=== PATIENT | male | born 1960 | race African-American/Black ===

== ENCOUNTER 2017-01-19 18:56 | Inpatient (IN) | payer SELFPAY ==
[~2017-01-19] VITALS: Ht 175.3 cm; Wt 100.3 kg
--- OUTSIDE RECORDS SUMMARY | 2017-01-19 19:02 | XMS REPORT ---
Author Author Cheri Zimmerman Organization [employer] Address Unknown Phone Unavailable Care Team Providers Care Manager Knowledge Name Role Phone Cheri Zimmerman CP Unavailable Allergies No Known Allergies Problems Problem Type Condition ICD-9 Code Onset Dates Condition Status Problem Closed fracture of metacarpal bone(s), site unspecified 815.00 Active Medications Medication Code System Code Instructions Start Date End Date Status Dosage Naprosyn FORMER[facility] NAMED [facility] [address]-75 500 MG Orally every 12 hrs November 13, 2012 Active 1 tablet as needed Hydrocodone-Acetaminophen FORMERLY NAMED [facility] [address]-49 5-325 MG Orally every 6 hrs November 13, 2012 Active 1-2 tabs as needed for pain Results No Known Results Summary Purpose [employer] Submission
--- OUTSIDE RECORDS SUMMARY | 2017-01-19 19:02 | XMS REPORT ---
Author Author Lety Manzano Organization [employer] Address Unknown Phone Unavailable Care Team Providers Care Roving Winder Name Role Phone Lety Manzano CP Unavailable Allergies No Known Allergies Problems Problem Type Condition ICD-9 Code Onset Dates Condition Status Problem Closed fracture of metacarpal bone(s), site unspecified 815.00 Active Assessment Other unknown and unspecified cause of morbidity or mortality 799.9 Active Medications Medication Code System Code Instructions Start Date End Date Status Dosage Naprosyn [facility] [address]-32 500 MG Orally every 12 hrs November 13, 2012 Active 1 tablet as needed Hydrocodone-Acetaminophen [facility] [address]-88 5-325 MG Orally every 6 hrs November 13, 2012 Active 1-2 tabs as needed for pain Procedures Procedure Coding System Code Date CASE MGT- QMHP 15 MIN PHILLIP CPT-4 T1016 February 01, 2014 INITIAL REFERRAL-IND. CPT-4 T1023 February 01, 2014 Results No Known Results Summary Purpose [employer] Submission
[2017-01-19] MEDS ORDERED: NORMAL SALINE 1,000 ML IV ONE ×2 (19:24→20:45)
--- NOTE | 2017-01-19 19:28 | ERPDOC ---
Departure Disposition Decision Date: January 19, 2017 Disposition Decision Time: 22:00 Disposition: [address] [facility] Impression Impression Impression: Primary Impression: Intentional overdose of drug in tablet form Additional Impressions: Suicide attempt Depression Depression Type: major depressive disorder Major depression recurrence: recurrent Active/Remission status: currently active Major depression episode severity: severe Psychotic features: without psychotic features Qualified Codes: F33.2 - Major depressive disorder, recurrent severe without psychotic features Methamphetamine abuse Severity: Severe Condition: Improved Seen By: Physician only Problems/Meds/Labs Reviewed?: Yes Medications reviewed and manag: Yes Follow up care ordered?: Yes Mental Status: Alert, Oriented HPI - Psychosocial General Chief Complaint: Suicide Ideation/Attempt Stated Complaint: SUICIDAL THOUGHTS Time Seen by MD: 19:09 Source: patient Exam Limitations: no limitations HPI - Psychosocial Initial Comments 56yo man presents to the Allergies: Coded Allergies: NKDA (Verified Allergy, Unknown, 01/19/17) Physical Exam General Vitals and Pain First Documented Vital Signs Date Time Temp Pulse Resp B/P Pulse Ox O2 Delivery O2 Flow Rate FiO2 01/19/17 19:01 98.5 116 12 171/107 97 Room Air Weight: Kilograms: 98.400 Height (feet): 5 Height (inches): 9.00 Triage Pain Scale: Progress Results/Orders Orders Procedure Category Date Status Time Iv Lock (Ed Only) EDM 01/19/17 Transmitted 19:24 Nothing By Mouth (Ed EDM 01/19/17 Transmitted Only) 19:24 EKG EKG 01/19/17 Taken 19:24 Cbc W/Auto LAB 01/19/17 Complete Diff-Reflex Manual 19:24 Cmp - Comprehensive LAB 01/19/17 Complete Metabolic 19:24 Ethanol LAB 01/19/17 Complete 19:24 Drug Screen LAB 01/19/17 Complete Urine-Test At [facility] 19:24 Acetaminophen LAB 01/19/17 Complete 19:24 Salicylate LAB 01/19/17 Complete 19:24 Ua, Dip Wreflex LAB 01/19/17 Complete [employer] Third 19:24 Tsh - Thyroid Stim LAB 01/19/17 Complete Hormone 19:24 Chest 1 View RAD 01/19/17 Resulted 19:24 Normal Saline (Normal PHA 01/19/17 Complete Saline Iv) 19:24 Ck - Cpk LAB 01/19/17 Complete Normal Saline (Ns) PHA 01/19/17 Complete 20:45 Normal Saline (Normal PHA 01/19/17 Complete Saline Iv) 20:45 Bmp - Basic Metabolic LAB 01/19/17 Complete Panel 1/2 Ns (0.45% Ns) PHA 01/19/17 Complete 21:30 Hydralazine PHA 01/19/17 Complete (Apresoline) 22:00 Place In Facility: ED ADM 01/19/17 Transmitted Lab Results Laboratory Tests Test 01/19/17 19:50 01/19/17 20:24 01/19/17 21:32 White Blood Count 6.5T/MM3 Red Blood Count 4.67M/MM3 Hemoglobin 14.3GM/DL Hematocrit 42.0% Mean Corpuscular Volume 89.9UM3 Mean Corpuscular Hemoglobin 30.6UUG Mean Corpuscular Hemoglobin Concent 34.0GM/DL RDW Standard Deviation 44.2FL Platelet Count 202T/MM3 Mean Platelet Volume 9.8UM3 Immature Granulocyte % (Auto) 0.2% Neutrophils (%) (Auto) 70.7% Lymphocytes (%) (Auto) 21.4% Monocytes (%) (Auto) 6.9% Eosinophils (%) (Auto) 0.3% Basophils (%) (Auto) 0.5% Absolute Immature Granulocyte (auto 0.01T/MM3 Absolute Neutrophils (auto) 4.6T/MM3 Absolute Lymphocytes (auto) 1.4T/MM3 Absolute Monocytes (auto) 0.5T/MM3 Absolute Eosinophils (auto) 0.0T/MM3 Absolute Basophils (auto) 0.0T/MM3 Turbidity < 20 < 20 Sodium Level 149MEQ/L 148MEQ/L Potassium Level 3.8MEQ/L 3.9MEQ/L Chloride Level 105MEQ/L 113MEQ/L Carbon Dioxide Level 27MEQ/L 24MEQ/L Anion Gap 17MEQ/L 11MEQ/L Blood Urea Nitrogen 8.0MG/DL 8.0MG/DL Creatinine 1.2MG/DL 1.1MG/DL Glomerular Filtration Rate Calc 62 69 BUN/Creatinine Ratio 7RATIO 7RATIO Glucose Level 103MG/DL 91MG/DL Calculated Osmolality 284MOSM/KG 282MOSM/KG Calcium Level 9.6MG/DL 8.8MG/DL Total Bilirubin 0.60MG/DL Icterus Index < 2 < 2 Aspartate Amino Transf (AST/SGOT) 24U/L Alanine Aminotransferase (ALT/SGPT) 32U/L Alkaline Phosphatase 94U/L Total Creatine Kinase 202U/L Total Protein 8.4G/DL Albumin 4.9G/DL Globulin 3.5G/DL Albumin/Globulin Ratio 1.4RATIO Thyroid Stimulating Hormone (TSH) 0.78MIU/L Chemistry Specimen Hemolysis < 15 < 15 Salicylates Level < 1.0MG/DL Acetaminophen Level < 10UG/ML Alcohol, Quantitative <10MG/DL Urine Collection Type Cleancatch-midstream Urine Color Yellow Urine Turbidity Clear Urine pH 6.0 Urine Specific [place] <=1.005 Urine Protein Negative Urine Glucose (UA) Negative Urine Ketones Negative Urine Blood Negative Urine Nitrite Negative Urine Bilirubin Negative Urine Urobilinogen 0.2EU/DL Urine Leukocyte Esterase Negative Urinalysis Comment Microscopic not ind. Urine Opiates Screen NegativeNG/ML Urine Oxycodone Screen NegativeNG/ML Urine Methadone Screen NegativeNG/ML Urine Propoxyphene Screen NegativeNG/ML Urine Barbiturates Screen NegativeNG/ML Urine Tricyclic Antidepressants NegativeNG/ML Urine Phencyclidine Screen NegativeNG/ML Urine Amphetamines Screen NegativeNG/ML Urine Methamphetamines Screen PositiveNG/ML Urine Benzodiazepines Screen NegativeNG/ML Urine Cocaine Screen NegativeNG/ML Urine Cannabinoids Screen NegativeNG/ML Urine Drug Screen Confirmation Sent out Urine Drug Screen Information Pending Medications Current ED Medications Sodium Chloride (Normal Saline IV) 1,000 ml @ 0 mls/hr Q0M ONCE IV Last administered on 01/19/17 19:44; Start 01/19/17 at 19:24; Stop 01/19/17 at 19:26 ; Status DC Sodium Chloride 1000 ml 1,000 ml O ONCE IV ; Start 01/19/17 at 20:45; Stop at 20:46; Status DC Sodium Chloride 1,000 ml @ 0 mls/hr Q0M ONCE IV Last administered on 20:49; Start 01/19/17 at 20:45; Stop 01/19/17 at 20:46; Status DC Sodium Chloride (0.45% NS) 1,000 ml @ 0 mls/hr Q0M ONCE IV Last administered on 01/19/17 21:30; Start 01/19/17 at 21:30; Stop 01/19/17 at 21:31; Status DC Hydralazine HCl (Apresoline) 20 mg O ONCE IM ; Start 01/19/17 at 22:00; Stop at 22:05; Status DC EKG EKG : Rate: >100 Rhythm: sinus [place]: right QRS: RBBB (Incomplete) Intervals: normal ST/T: normal Interpreted by: signing physician Consult/PCP Consult/PCP #1: Physician Contacted: Poison Control Time Called: 19:20 Type of discussion: Phone Consult/PCP Discussion Details If QT > 500, give 1-2gm of magnesium and recheck. Check EKG. Can cause tachy, HTN, and hypotension. Check CK and UOP if CK at rhabdo. If seizures, give benzos , phenobarb, then sedate/intubate. Consult/PCP #2: Physician Contacted: Isauro Hernandez Time Called: 21:58 Time of first response: 21:58 Type of discussion: Admit Discussion/PCP Discussion Details Will admit to either ICU or 1:1 on floor. Xray Xray : Xray: CXR Portable Interpretation: Normal, Interpreted by JOHNSON Ross DO January 19, 2017 19:28
[2017-01-19] MEDS ORDERED: MIRT30TA2 PO (19:44)
[2017-01-19 20:04] LABS: BASOPHILS % (AUTO) 0.5 % (0-2); EOSINOPHILS % (AUTO) 0.3 % (0-4); HGB - HEMOGLOBIN 14.3 GM/DL (13.5-17.5); IMMATURE GRANULOCYTE # (AUTO) 0.01 T/MM3 (0.00-0.03); IMMATURE GRANULOCYTE % (AUTO) 0.2 % (0.0-0.5); LYMPHOCYTES # (AUTO) 1.4 T/MM3 (1-4.8); LYMPHOCYTES % (AUTO) 21.4 % (23-45); MEAN CORPUSCULAR HGB 30.6 UUG (26-34); MEAN CORPUSCULAR VOLUME 89.9 UM3 (80-100); MEAN PLATELET VOLUME 9.8 UM3 (9.4-12.4); MONOCYTES # (AUTO) 0.5 T/MM3 (0-0.8); MONOCYTES % (AUTO) 6.9 % (0-9.0); NEUTROPHILS #(AUTO)-ABSOLUTE 4.6 T/MM3 (1.8-7.7); NEUTROPHILS % (AUTO) 70.7 % (33-66); RED BLOOD COUNT 4.67 M/MM3 (4.50-5.90); WBC - WHITE BLOOD COUNT 6.5 T/MM3 (4.5-11.0)
[2017-01-19 20:07] LABS: ALBUMIN 4.9 G/DL (3.5-5.0); ALBUMIN/GLOBULIN RATIO 1.4 RATIO (1.1-2.2); ALKALINE PHOSPHATASE 94 U/L (38-126); ALT (SGPT) 32 U/L (21-72); ANION GAP 17 MEQ/L (5-15); AST (SGOT) 24 U/L (17-59); BUN/CREATININE RATIO 7 RATIO (6-26); CALCIUM 9.6 MG/DL (8.4-10.2); CHLORIDE 105 MEQ/L (98-107); CO2 - CARBON DIOXIDE 27 MEQ/L (22-30); CREATININE 1.2 MG/DL (0.8-1.5); GLOMERULAR FILTRATION RATE 62; GLUCOSE 103 MG/DL (75-110); POTASSIUM 3.8 MEQ/L (3.6-5); SODIUM 149 MEQ/L (134-144); TOTAL PROTEIN 8.4 G/DL (6.3-8.2)
[2017-01-19 20:16] LABS: ACETAMINOPHEN < 10 UG/ML (10-30); ETHANOL <10 MG/DL (<10); SALICYLATE < 1.0 MG/DL (2-20)
[2017-01-19 20:33] LABS: BLOOD, URINE NEGATIVE (NEGATIVE); COLOR,URINE YELLOW (YELLOW); LEUKOCYTE ESTERASE ,URINE NEGATIVE (NEGATIVE); NITRITE,URINE NEGATIVE (NEGATIVE); UROBILINOGEN,URINE 0.2 EU/DL (NORMAL)
[2017-01-19 20:37] LABS: THYROID STIM HORMONE-TSH 0.78 MIU/L (0.47-4.68)
--- NOTE | 2017-01-19 20:42 | DI ---
Indication: ITS.REASON: Medical clearance PROCEDURE: CHEST 1 VIEW: Encounter: Initial Comparison: None FINDINGS: The lungs are clear. There is no abnormal airspace opacity, pleural effusion or pneumothorax identified. The heart size, pulmonary vasculature and mediastinum are within normal limits. No significant skeletal abnormality is seen. IMPRESSION: No acute cardiopulmonary abnormality. .
[2017-01-19] MEDS ORDERED: NS 50ML IV ONE (20:45)
[2017-01-19 20:49] LABS: AMPHETAMINE SCREEN,URINE NEGATIVE
[2017-01-19 20:50] LABS: BARBITURATE SCREEN,URINE NEGATIVE; BENZODIAZEPINES SCREEN,URINE NEGATIVE; CANNABINOID SCREEN,URINE NEGATIVE; COCAINE SCREEN,URINE NEGATIVE; METHADONE SCREEN, URINE NEGATIVE; METHAMPHETAMINE SCREEN, URINE POSITIVE; OPIATE SCREEN,URINE NEGATIVE; PHENCYCLIDINE SCREEN,URINE NEGATIVE; TRICYCLIC ANTIDEPRESSANT,URINE NEGATIVE
[2017-01-19] MEDS ORDERED: 1/2 NS 1,000 ML IV ONE (21:30)
[2017-01-19 21:47] LABS: ANION GAP 11 MEQ/L (5-15); BUN/CREATININE RATIO 7 RATIO (6-26); CALCIUM 8.8 MG/DL (8.4-10.2); CHLORIDE 113 MEQ/L (98-107); CO2 - CARBON DIOXIDE 24 MEQ/L (22-30); CREATININE 1.1 MG/DL (0.8-1.5); GLOMERULAR FILTRATION RATE 69; GLUCOSE 91 MG/DL (75-110); POTASSIUM 3.9 MEQ/L (3.6-5); SODIUM 148 MEQ/L (134-144)
--- OUTSIDE RECORDS SUMMARY | 2017-01-19 22:13 | XMS REPORT | Continuity of Care Document ---
Author Author [facility] Organization [facility] Address Unknown Phone Unavailable Care Team Providers Care Manager Of Organizational Development Name Role Phone No Pcp, Na Primary Care Physician Unavailable Source Comments Some departments are not documenting in the electronic medical record. If you do not see the information that you expected, contact Release of Information in the Health Information Management department at [phone] for further assistance in locating additional records.[facility] Active Allergies and Adverse Reactions No Known Allergies Current Medications Prescription Sig. Disp. Refills Start End Date Status Date Omeprazole 20 mg TbEC Take 1 Tab by mouth twice 60 Tab 1 06/23/20 Active daily. 14 Active Problems Problem Noted Date Positive PPD 04/22/2011 Erosive esophagitis 04/22/2011 Acute renal insufficiency 04/22/2011 Social History Tobacco Use Types Packs/Day Years Used Date Current Some Day Smoker Cigarettes 0.25 Alcohol Use Drinks/Week oz/Week Comments No 7 Cans of 4.2 beer Last Filed Vital Signs Vital Sign Reading Time Taken Blood Pressure 120/57 06/23/2014 11:57 AM CDT Pulse 59 06/23/2014 11:57 AM CDT Temperature 36.7 C (98.1 F) 06/23/2014 11:57 AM CDT Respiratory Rate - - Height 1.753 m (5' 9") 06/22/2014 10:31 AM CDT Weight 88.633 kg (195 lb 6.4 oz) 06/23/2014 3:27 AM CDT Body Mass Index 28.84 06/23/2014 3:27 AM CDT Oxygen Saturation 97% 06/23/2014 11:57 AM CDT Plan of Care Health Maintenance Due Date Last Done Comments Hepatitis C Screening 1959 Physical (Comprehensive) 1966 Exam Pertussis Vaccine 1970 Tetanus Vaccine 1976 Colorectal Cancer 2009 Screening Influenza Vaccine 05/02/2017 Results from Last 3 Months Not on file
[2017-01-19 22:25] VITALS: PULSE 128; RESP 33; O2SAT 97
--- NOTE | 2017-01-19 22:25 | NUR ---
Admit Pt admitted to CCU6 at this time via cart. Pt able to stand and transfer self from cart to bed. Accompanied by ED RNErrol. Received by this RN and other CCU RN. Pt alert and talking. C/o headache and the room "spinning." Assisted into bed. VSS aside from tachycardia 120s and HTN.
--- NOTE | 2017-01-19 22:25 | NUR ---
Admit Patient brought via ER cart to CCU.
[2017-01-19 22:30] VITALS: PULSE 130; RESP 20
[2017-01-19] MEDS ORDERED: LORAZEPAM 2 MG/ML INJECTION IV PRN (22:30)
[2017-01-19] MEDS ORDERED: ONDANSETRON 4mg/2ml INJECTION IV PRN (22:30)
[2017-01-19 22:32] VITALS: Ht 175.3 cm; Wt 100.3 kg
[2017-01-19] MEDS: D5-1/2 NS 1,000 ML IV SCH (22:51)
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
[2017-01-19 23:25] VITALS: PULSE 125; RESP 21; O2SAT 95
[2017-01-19 23:58] VITALS: BP 153/70; PULSE 120; RESP 25; O2SAT 96
[2017-01-20] VITALS (42 sets, daily range): BP systolic 96–185; BP diastolic 51–99; PULSE 80–124; RESP 13–73; TEMP 98.6–99.1; O2SAT 91–97
--- NOTE | 2017-01-20 00:48 | NUR ---
Chest Pain/Congestion Pt c/o chest pain at this time. States it increases with coughing, sharp pain. Observed that pt is much more congested compared to admission. Increasing phlegm. A few episodes of emesis. RN contacted physician, Dr. Rouse. New order for STAT EKG, [place] 5 PRN, and Albuterol treatments PRN.
[2017-01-20] MEDS ORDERED: HYDROCODONE/APAP 5 mg/325 mg TABLET PO PRN (01:00)
[2017-01-20] MEDS ORDERED: ALBUTEROL INH.SOLN. 2.5mg/3ml (0.083%) Neb. AEROSOL PRN (01:00)
[2017-01-20] MEDS: HEPARIN SUB-Q 5,000 unit/0.5ml vial SQ SCH ×3 (01:12→17:12)
[2017-01-20] MEDS ORDERED: METOCLOPRAMIDE 10mg/2ml INJECTION IV PRN (01:30)
[2017-01-20 04:46] LABS: BASOPHILS % (AUTO) 0.1 % (0-2); EOSINOPHILS % (AUTO) 0.2 % (0-4); HCT - HEMATOCRIT 36.6 % (41-53); HGB - HEMOGLOBIN 12.5 GM/DL (13.5-17.5); IMMATURE GRANULOCYTE # (AUTO) 0.01 T/MM3 (0.00-0.03); IMMATURE GRANULOCYTE % (AUTO) 0.1 % (0.0-0.5); LYMPHOCYTES # (AUTO) 1.2 T/MM3 (1-4.8); MEAN CORPUSCULAR HGB 30.6 UUG (26-34); MEAN CORPUSCULAR HGB CONC(MCHC 34.2 GM/DL (31-37); MEAN CORPUSCULAR VOLUME 89.5 UM3 (80-100); MEAN PLATELET VOLUME 9.7 UM3 (9.4-12.4); MONOCYTES # (AUTO) 0.7 T/MM3 (0-0.8); MONOCYTES % (AUTO) 7.6 % (0-9.0); NEUTROPHILS #(AUTO)-ABSOLUTE 6.9 T/MM3 (1.8-7.7); RED BLOOD COUNT 4.09 M/MM3 (4.50-5.90); WBC - WHITE BLOOD COUNT 8.8 T/MM3 (4.5-11.0)
[2017-01-20 04:54] LABS: ANION GAP 11 MEQ/L (5-15); BUN/CREATININE RATIO 6 RATIO (6-26); CALCIUM 8.7 MG/DL (8.4-10.2); CHLORIDE 111 MEQ/L (98-107); CO2 - CARBON DIOXIDE 25 MEQ/L (22-30); CREATININE 1.1 MG/DL (0.8-1.5); GLOMERULAR FILTRATION RATE 69; GLUCOSE 119 MG/DL (75-110); POTASSIUM 3.8 MEQ/L (3.6-5); SODIUM 147 MEQ/L (134-144)
--- NOTE | 2017-01-20 05:52 | NUR ---
Status Pt slept a bit for the first time in several days. Awoke stating he feels better, still a bit foggy headed. Tracking and mentation seems much improved. Requesting food. Per physician, ok to advance to regular diet. Pt had several cups of broth during the night with no episodes of choking/coughing. C/o headache throughout shift. RN admin PRN [place], however pt had large amount of emesis following administration. PRN Zofran and Reglan administered tonight. HR improved from 120's to 90's. Stated he could feel his heart "pounding hard" in his chest, this sensation has also improved this morning. BP improved from 180's to 130's systolic. Headache remains, but states is slightly better. Pt has some upper respiratory congestion, which produced some chest pain with coughing. EKG was obtained. No changes. Physician aware.
[2017-01-20] MEDS: D5-1/2 NS 1,000 ML IV SCH (09:12)
--- NOTE | 2017-01-20 12:13 | NUR ---
NIKUNJ THIS WORKER MET WITH PT ON THIS DATE. PT LAYING IN BED AT THIS TIME. PT ABLE TO TELL ME MONTH YEAR AND CURRENT PRESIDENT. THIS WORKER INTRODUCED SELF AND ROLE OF CASE MANAGEMENT. PT COMMUNICATED THAT HE WAS STILL ACTIVELY SUICIDAL. PT REPORTED THAT HE HAD A LOT GOING ON IN HIS LIFE AND THOUGHT THAT THE MEDICATIONS THAT HE TOOK YESTERDAY "DIDN'T WORK." THIS WORKER INQUIRED REGARDING THE MEANING OF THAT STATEMENT. PT REPORTED THAT HE WASN'T PLANNING TO WAKE UP. PT REPORTED WILLINGNESS TO COMPLETE INPATIENT HOSPITALIZATION. PT DENIED ANY PREVIOUS HOSPITALIZATIONS. PT EXPLAINED THAT HE WAS FEELING DOWN AND HAD NOTHING TO LIVE FOR. PT WENT ONTO SAY THAT HE WAS DIAGNOSED WITH BI POLAR AND DEPRESSION. PT REPORTED THAT HE HAD RECEIVED SOME MEDICATIONS THROUGH THE [facility] TO HELP WITH HIS MENTAL HEALTH. PT EXPLAINED THAT HE HAD NO FAMILY SUPPORT IN THE AREA AND HAS LIVED IN [place] FOR ABOUT A MONTH. PT REPORTED THAT HE HAS BEEN IN [facility] BEFORE THAT FOR ABOUT THE LAST 11 MONTHS. PT CONCERNED ABOUT HIS PLAN ON "WHERE WILL I LIVE AFTER" THE HOSPITAL STAY. THIS WORKER DISCUSSED RESOURCES FOR CARE HOME. PT REPORTED THAT HE WAS KICKED OUT OF THE [employer] IN [place] FOR DRINKING. THIS WORKER DISCUSSED ADDITIONAL RESOURCES FOR FUTURE NEEDS. PT REQUESTED THAT THIS WORKER ASSIST HIM IN CALLING HIS MOTHER TO LET HER KNOW THAT HE WAS IN THE HOSPITAL. PT AGAIN REPORTED THAT HE WAS WILLING TO BE ADMITTED TO A HOSPITAL AND THAT HE NEEDS HELP. PT UPDATED PRIMARY NURSE ON THIS DATE. CASE MANAGEMENT WILL CONTINUE TO FOLLOW AND ASSIST IN DISCHARGE PLANNING.
--- NOTE | 2017-01-20 12:58 | NUR ---
CM CALLED AND REQUESTED SCREEN FROM [facility] ON THIS DATE. [facility] WILL BE HERE TO SCREEN. UPDATE TO PRIMARY NURSE AND PHYSICIAN.
--- NOTE | 2017-01-20 13:05 | NUR ---
Status Pt has been very cooperative and pleasant this shift. A/o x3. Remained in bed for breakfast as pt reported still feeling pretty dizzy. Pt has had a good appetite with no n/v. Pt did get up to the chair for lunch with minimal assistance. stated dizziness was gone. Pt has visited with CM. Has still expressed to this RN that he is suicidal. When asked if he wants to hurt others he states "You didn't go this to me. I would never hurt anyone. I'm the only one to blame for this". Permission received to Geoffreylatoya webb (pt's mother) to receive information regarding pt. Pt's bike was brought from front entrance to CCu bed 6.
--- NOTE | 2017-01-20 15:50 | DSPDOC ---
General Date Date DATE: 01/20/17 TIME: 15:36 Attending Physician Alba Damon MD Admitting Physician Alba Damon MD Consulting Physician Fadia Admitting Diagnosis SUICIDE ATTEMPT Discharge Diagnosis Suicide attempt/mirtazapine overdose Polysubstance abuse-methamphetamine/alcohol Hypertension Major depression with suicidal ideation Hypernatremia, minor Anemia, normocytic Incomplete RBBB Mild dehydration Laboratory Laboratory Tests Test 01/19/17 19:50 01/19/17 20:24 01/19/17 21:32 01/20/17 04:18 White Blood Count 6.5T/MM3 (4.5-11.0) 8.8T/MM3 (4.5-11.0) Red Blood Count 4.67M/MM3 (4.50-5.90) 4.09M/MM3 (4.50-5.90) Hemoglobin 14.3GM/DL (13.5-17.5) 12.5GM/DL (13.5-17.5) Hematocrit 42.0% (41-53) 36.6% (41-53) Mean Corpuscular Volume 89.9UM3 (80-100) 89.5UM3 (80-100) Mean Corpuscular Hemoglobin 30.6UUG (26-34) 30.6UUG (26-34) Mean Corpuscular Hemoglobin Concent 34.0GM/DL (31-37) 34.2GM/DL (31-37) RDW Standard Deviation 44.2FL (36.9-50.2) 44.0FL (36.9-50.2) Platelet Count 202T/MM3 (130-400) 176T/MM3 (130-400) Mean Platelet Volume 9.8UM3 (9.4-12.4) 9.7UM3 (9.4-12.4) Immature Granulocyte % (Auto) 0.2% (0.0-0.5) 0.1% (0.0-0.5) Neutrophils (%) (Auto) 70.7% (33-66) 78.0% (33-66) Lymphocytes (%) (Auto) 21.4% (23-45) 14.0% (23-45) Monocytes (%) (Auto) 6.9% (0-9.0) 7.6% (0-9.0) Eosinophils (%) (Auto) 0.3% (0-4) 0.2% (0-4) Basophils (%) (Auto) 0.5% (0-2) 0.1% (0-2) Absolute Immature Granulocyte (auto 0.01T/MM3 (0.00-0.03) 0.01T/MM3 (0.00-0.03) Absolute Neutrophils (auto) 4.6T/MM3 (1.8-7.7) 6.9T/MM3 (1.8-7.7) Absolute Lymphocytes (auto) 1.4T/MM3 (1-4.8) 1.2T/MM3 (1-4.8) Absolute Monocytes (auto) 0.5T/MM3 (0-0.8) 0.7T/MM3 (0-0.8) Absolute Eosinophils (auto) 0.0T/MM3 (0-0.5) 0.0T/MM3 (0-0.5) Absolute Basophils (auto) 0.0T/MM3 (0-0.2) 0.0T/MM3 (0-0.2) Turbidity < 20 (0-20) < 20 (0-20) < 20 (0-20) Sodium Level 149MEQ/L (134-144) 148MEQ/L (134-144) 147MEQ/L (134-144) Potassium Level 3.8MEQ/L (3.6-5) 3.9MEQ/L (3.6-5) 3.8MEQ/L (3.6-5) Chloride Level 105MEQ/L (98-107) 113MEQ/L (98-107) 111MEQ/L (98-107) Carbon Dioxide Level 27MEQ/L (22-30) 24MEQ/L (22-30) 25MEQ/L (22-30) Anion Gap 17MEQ/L (5-15) 11MEQ/L (5-15) 11MEQ/L (5-15) Blood Urea Nitrogen 8.0MG/DL (9-20) 8.0MG/DL (9-20) 7.0MG/DL (9-20) Creatinine 1.2MG/DL (0.8-1.5) 1.1MG/DL (0.8-1.5) 1.1MG/DL (0.8-1.5) Glomerular Filtration Rate Calc 62 69 69 BUN/Creatinine Ratio 7RATIO (6-26) 7RATIO (6-26) 6RATIO (6-26) Glucose Level 103MG/DL (75-110) 91MG/DL (75-110) 119MG/DL (75-110) Calculated Osmolality 284MOSM/KG (261-280) 282MOSM/KG (261-280) 281MOSM/KG (261-280) Calcium Level 9.6MG/DL (8.4-10.2) 8.8MG/DL (8.4-10.2) 8.7MG/DL (8.4-10.2) Total Bilirubin 0.60MG/DL (0.20-1.30) Icterus Index < 2 (0-7) < 2 (0-7) < 2 (0-7) Aspartate Amino Transf (AST/SGOT) 24U/L (17-59) Alanine Aminotransferase (ALT/SGPT) 32U/L (21-72) Alkaline Phosphatase 94U/L (38-126) Total Creatine Kinase 202U/L (55-170) Total Protein 8.4G/DL (6.3-8.2) Albumin 4.9G/DL (3.5-5.0) Globulin 3.5G/DL (2.4-3.6) Albumin/Globulin Ratio 1.4RATIO (1.1-2.2) Thyroid Stimulating Hormone (TSH) 0.78MIU/L (0.47-4.68) Chemistry Specimen Hemolysis < 15 (0-25) < 15 (0-25) < 15 (0-25) Salicylates Level < 1.0MG/DL (2-20) Acetaminophen Level < 10UG/ML (10-30) Alcohol, Quantitative <10MG/DL (<10) Urine Collection Type Cleancatch-midstream Urine Color Yellow (YELLOW) Urine Turbidity Clear (CLEAR) Urine pH 6.0 (5.0-8.0) Urine Specific [place] <=1.005 (1.015-1.025) Urine Protein Negative (NEGATIVE) Urine Glucose (UA) Negative (NEGATIVE) Urine Ketones Negative (NEGATIVE) Urine Blood Negative (NEGATIVE) Urine Nitrite Negative (NEGATIVE) Urine Bilirubin Negative (NEGATIVE) Urine Urobilinogen 0.2EU/DL (NORMAL) Urine Leukocyte Esterase Negative (NEGATIVE) Urinalysis Comment Microscopic not ind. Urine Opiates Screen NegativeNG/ML Urine Oxycodone Screen NegativeNG/ML Urine Methadone Screen NegativeNG/ML Urine Propoxyphene Screen NegativeNG/ML Urine Barbiturates Screen NegativeNG/ML Urine Tricyclic Antidepressants NegativeNG/ML Urine Phencyclidine Screen NegativeNG/ML Urine Amphetamines Screen NegativeNG/ML Urine Methamphetamines Screen PositiveNG/ML Urine Benzodiazepines Screen NegativeNG/ML Urine Cocaine Screen NegativeNG/ML Urine Cannabinoids Screen NegativeNG/ML Urine Drug Screen Confirmation Sent out History of Present Illness Mr. Chang is a 56-year-old male with a history of polysubstance abuse, anxiety, depression, and possible schizophrenia per patient report. He describes past participation in rehabilitation at [facility] following release from half-way approximately 2 years ago. He also makes references to losing his job and getting kicked out of the [facility]. [place] and that he's been very frustrated and has had increased anxiety and depression. For several days he's been using "speed" and methamphetamine. At some point yesterday depressive symptoms worsen significantly prompting him to take 12 tablets of mirtazapine (6 tablets reported previously) with the intent of ending his life. When asked if patient would intentionally harm himself again if able to do so he indicated intent to do so stating "what's the point". After taking mirtazapine he describes onset of nausea and visual blurring prompting panic for which he presented to the emergency room. He now feels that presenting to the emergency room was a mistake and that he shouldn't of done so. He was hospitalized for management. Patient reports that he feels very stressed and depressed. Hasn't been sleeping well and feels hopeless. QTC was borderline prolonged in the emergency room. Poison control was contacted and recommended admission for medical stabilization. The patient is now admitted into the ICU for further medical monitoring. Hospital Course Suicide attempt/mirtazapine overdose Polysubstance abuse-methamphetamine/alcohol Hypertension Major depression with suicidal ideation Hypernatremia, minor Anemia Incomplete RBBB Mild dehydration Mr. Chang was admitted to the intensive care unit. He was treated with hydralazine once for elevated blood pressures which subsequently normalized without additional interventions. He received IV fluids overnight with slight drop in his hemoglobin and drop in sodium. Initial lab suggested mild dehydration on presentation. The patient continued to describe feeling hopeless and reported that he intended to harm himself taking medications prior to admission and that he would do so again if the opportunity arose. QTc interval normalized and no cardiac arrhythmias were present. Patient was screened by psychiatry and inpatient stabilization at [facility] recommended. Patient will transfer later today to the care of Dr. Gutierrez at [place]. Problems: Code Status Full Code Home Meds Reported Medications Mirtazapine (Remeron) 30 Mg Tab.rapdis, 30 MG PO HS 01/19/17 Face to Face Encounter I met with patient on the day of dismissal and discussed follow up appointments , medications, and safety plan. Discharge Disposition [facility] Copies To 1: HCUY BUCKNER ROBERTA L MD January 20, 2017 15:43
--- NOTE | 2017-01-20 16:28 | NUR ---
NIKUNJ THIS WORKER COORDINATED SERVICES WITH [facility], [employer], TIM. PT HAD PREVIOUSLY ASKED TO COORDINATE WITH PCP. INFORMATION OBTAINED FROM [facility] REGARDING PT'S PREVIOUS MEDICATIONS AND THIS INFORMATION SENT WITH PT TO
--- NOTE | 2017-01-20 19:07 | NUR ---
Discharge Pt discharged to [facility] via secure transport. Report had been called prior, and then again at time of discharge. Pt left with all belongings EXCEPT; BIKE and POCKET KNIFE. These belongings are labeled and in CCU storage room. Items to be picked up by Cody- pt's friend. Pt ambulated to exit without difficulty.
== END 2017-01-20 19:07 | DRG 918 ==
LOC: ED 18:56 → EDHOLD 22:01 → CCU 22:25
PROVIDERS: ADMIT Emergency Medicine; ATTEND Internal Medicine
DX: T43.022A Poisoning by tetracyclic antidepressants, intentional self-harm, initial encounter (principal); F32.9 Major depressive disorder, single episode, unspecified; F41.9 Anxiety disorder, unspecified; F15.10 Other stimulant abuse, uncomplicated; F14.10 Cocaine abuse, uncomplicated; F17.200 Nicotine dependence, unspecified, uncomplicated; I10 Essential (primary) hypertension; D64.9 Anemia, unspecified; E86.0 Dehydration; I45.10 Unspecified right bundle-branch block; Y92.9 Unspecified place or not applicable
CPT/HCPCS: 36000; 36415; 80048; 80053; 80306; 80307; 81003; 82550; 84443; 85025; 93005; 96361; 96374; 99406; 99407